=== PATIENT | female | born 1955 | race Caucasian/White ===

== ENCOUNTER → 2016-07-25 | Outpatient (CLI) | payer BC ==
--- NOTE | 2016-07-25 17:46 | MA ---
Screening Digital Mammogram With iCAD Analysis Reason for Examination: Routine screening. The patient has had left breast cancer treated with lumpec estee and radiation. Additionally, the patient has had bilateral benign breast biopsies. A sister was diagnosed with breast cancer in her 50s. Breast parenchymal density: Type C; Heterogeneously dense. Technique: Four views of each breast are obtained including CC and oblique lateral Ronal (implant di splaced) and non-Ronal (implant not displaced) views. Digital breast tomosynthesis was performed in the implant-displaced MLO projection with reconstruction at 1.0 mm slice thickness and composite MLO views reconstructed. This examination is processed by the iCAD computer aided detection system. Comparison: July 2015, July 2014, July 2013, June 2013, June 2011, June 2010. Findings: Breast implants are in place bilaterally. iCAD is reviewed. Mild architectural change at th e left breast lumpectomy site is stable. No suspicious areas are identified. There has been no signif icant change in the appearance of either breast. Breast implants diminish the sensitivity of mammogra phy. Vascular calcifications are noted. Impression: Benign post lumpectomy mammography, BI-RADS 2. Recommendation: Routine screening is recommended in one year as long as physical examination is negat jerson. [facility] will send a result letter to the patient. Negative mammography should not preclude additional workup of a clinically suspicious finding. The patient's information is entered into a reminder system with a target due date for her next mammo gram.
== END ==
LOC: FIMAGING 11:21
DX: Z12.31 Encounter for screening mammogram for malignant neoplasm of breast (principal); Z85.3 Personal history of malignant neoplasm of breast; Z80.3 Family history of malignant neoplasm of breast
CPT/HCPCS: G0202

== ENCOUNTER 2016-11-26 17:43 | Emergency (ER) | payer BC ==
[2016-11-26 17:51] VITALS: TEMP 98.4; O2SAT 96
--- NOTE | 2016-11-26 18:11 | EDPHY ---
H & P Stated Complaint: fell on pointy lawn ornament puncture in r axilla Source: Patient Exam Limitations: No limitations - Personal History Current Tetanus/Diphtheria Vaccine: Yes - Medical/Surgical History Hx Asthma: No Hx Chronic Respiratory Disease: No Hx Diabetes: No Hx Cardiac Disease: No Hx Renal Disease: No Hx Cirrhosis: No Hx Alcoholism: No Hx HIV/AIDS: No Hx Splenectomy or Spleen Trauma: No Other PMH: breast cancer - Social History Smoking Status: Never smoked HPI/ROS: CHIEF COMPLAINT: Armpit laceration HISTORY OF PRESENT ILLNESS: Patient was stepping up on a retaining wall when she tripped. She landed on a lawn or month it was sharp and metal. This was around 4:30 p.m.. There was mild bleeding. Minimal pain. She has mild pain at rest. She describes it as a dull ache. She has no complaints of numbness, tingling, pain, weakness, cold sensation of the right upper extremity. She has no chest pain, shortness of breath or difficulty breathing. No pain with inspiration. The wound is in the central portion of the right axilla. No other associated complaints or modifying factors. Tetanus last administered in 2007. TIME OF INJURY: 4:30 p.m. TETANUS STATUS: 2008 REVIEW OF SYSTEMS: Ten systems reviewed and are negative unless otherwise noted in the HPI EXAMINATION General Appearance: Alert, no distress Head: normocephalic, atraumatic Eyes: Pupils equal and round, no conjunctival pallor or injection ENT, Mouth: Mucous membranes moist Neck: Normal inspection Respiratory: No dyspnea or retractions. No distress Cardiovascular: Pulses normal throughout. Symmetric radial pulses are 2+. Symmetric ulnar pulses 2+. Brisk cap refill in all 10 fingers. Neurological: A&O, radial, ulnar and median distributions are intact symmetrically. Two point sensation intact in the right hand. No wrist drop. Strength is 5/5 in the right interossei, wrist and elbow. No reported paresthesia. Skin: Warm and dry, no rash. 1 cm stellate laceration in the right axilla. This is a v-shaped. There is no bleeding. No foreign body in the wound bed. This is very superficial. Extremities: Nontender, no pedal edema Psychiatric: Mood and affect normal MDM: 6:00 p.m. Superficial laceration of the right axilla. She has no motor or sensory complaints. She exhibits excellent signs of perfusion. There no sensory deficits on examination. Radial, ulnar and median distributions are symmetric. Radial pulses are 2+ symmetrically. Ulnar pulses are 2+ symmetrically. No wrist drop. No evidence of brachial plexus injury. Lungs are clear in all boo. The angle of the wound suggests that this was lateral and away from the chest. She has no chest pain or shortness of breath. I do not feel she warrants any imaging at this time. I have anesthetized the wound. We will proceed with irrigation and closure. 6:50 p.m. Superficial laceration of the right axilla. No evidence of arterial injury. No evidence brachial plexus injury. No evidence of intrathoracic injury. We discussed return to the emergency department precautions including chest pain, shortness of breath, pleuritic pain, motor or sensory changes in the right upper extremity, changes in temperature of the right upper extremity. She is comfortable with this plan. She is discharged home with daily wound care instructions. Return here in 7-10 days for suture removal. PROCEDURE: Laceration repair Consent: Verbal Location: Right axilla Length of repair: 1 cm, stellate Complexity: Simple Layer involvement: Single Anesthesia: Local, 1% lidocaine plain, 5 mL Irrigation: Extensive Debridement: None Procedure description: Following good anesthesia, the wound was copiously irrigated. Wound bed was explored and there is no foreign body noted. Wound borders were approximated well with good hemostasis. Tolerated well without complication. Suture/Staple material: 4-0 prolene, 2 simple interrupted sutures Wound care: Routine as discussed Suture/Staple removal: 7 Days SUTURE STAPLE REMOVAL: 7 days ED Precautions: Worsening pain. Erythema, edema, cyanosis, pallor, paresthesia or anesthesia. SUPERVISION: This patient was independently evaluated without direct examination by the attending physician. Case was discussed with attending physician. (Silas Fuentes) Constitutional: Initial Vital Signs Temperature (C) 98.4 F 11/26/16 17:48 Heart Rate 54 L 11/26/16 17:48 Respiratory Rate 20 11/26/16 17:48 Blood Pressure 167/83 H 11/26/16 17:48 O2 Sat (%) 96 11/26/16 17:48 O2 Delivery Mode Room Air Allergies/Adverse Reactions: Penicillins Allergy (Verified 11/26/16 17:47) Home Medications: Medication Instructions Recorded Ambien 11/26/16 Nasocort 11/26/16 ZRUST 11/26/16 Medical Decision Making Other Provider: PHYSICIAN DOCUMENTATION: The patient was evaluated and managed by the Physician [employer] Operator and myself. I have reviewed the chart and agree with the findings and plan of care as documented. In addition, I examined the patient myself at 1815. History confirmed as puncture wound by ale callejas, no weakness or numbness in the right hand, no shortness of breath. Physical findings as follows: Normal radial pulse and motor and sensory in radial median and ulnar nerve distribution of the right hand. I am the secondary supervising physician. (Wade De La Paz) Departure - Departure Disposition: Home, Routine, Self-Care Clinical Impression: Laceration of axilla, right Qualifiers: Encounter type: initial encounter Qualified Code(s): S41.111A - Laceration without foreign body of right upper arm, initial encounter Condition: Good Instructions: Laceration (ED) Additional Instructions: Wound Care Follow-Up: Removal of sutures in [7-10] days. Suture removal is complimentary in uncomplicated cases. Infection or abnormal findings would require reevaluation by the MD. In that case, you may be billed. Wound care daily as discussed. Return here in 7-10 days for suture removal. Return sooner for signs of infection as discussed. Avoid deodorant to the affected area. Referrals: Gary Grace MD [Primary Care Provider] - As per Instructions
[2016-11-26] MEDS ORDERED: TDAP ADULT 0.5 ML INJ (BOOSTRIX) IM ONE (18:44)
[2016-11-26 19:20] VITALS: BP 127/78; PULSE 69; RESP 16
== END 2016-11-26 19:19 | disposition home or self-care (01) ==
DX: S41.111A Laceration without foreign body of right upper arm, initial encounter (principal); Z23 Encounter for immunization; Z85.3 Personal history of malignant neoplasm of breast; W01.0XXA Fall on same level from slipping, tripping and stumbling without subsequent striking against object, initial encounter

== ENCOUNTER → 2017-07-27 | Outpatient (CLI) | payer BC | LOC: FIMAGING 10:40 | PROVIDERS: ATTEND Internal Medicine Hematology & Oncology | DX: Z12.31 Encounter for screening mammogram for malignant neoplasm of breast (principal); Z80.3 Family history of malignant neoplasm of breast; Z86.000 Personal history of in-situ neoplasm of breast ==

== ENCOUNTER → 2018-07-30 | Outpatient (CLI) | payer BC | LOC: FIMAGING 08:23 | PROVIDERS: ATTEND Internal Medicine Hematology & Oncology | DX: Z12.31 Encounter for screening mammogram for malignant neoplasm of breast (principal); Z85.3 Personal history of malignant neoplasm of breast; Z80.3 Family history of malignant neoplasm of breast ==

== ENCOUNTER → 2018-08-16 | Outpatient (CLI) | payer BC | LOC: FIMAGING 14:04 | PROVIDERS: ATTEND Internal Medicine Hematology & Oncology | DX: R92.8 Other abnormal and inconclusive findings on diagnostic imaging of breast (principal) ==